=== PATIENT | female | born 1995 | race Hispanic/Latino ===

== ENCOUNTER 2024-11-15 20:41 | Emergency (ER) | payer OTHER ==
[~2024-11-15] VITALS: Ht 152.4 cm; Wt 72.6 kg
--- NOTE | 2024-11-15 20:42 | NUR ---
UA CUP PROVIDED
--- NOTE | 2024-11-15 21:09 | EKG ---
[facility] Test Date: 2024-11-15 Test Time: 21:06:47 Pat Name: ANGUS RUVALCABA Department: 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
[2024-11-15 21:31] LABS: BASOPHILS # (AUTO) 0.03 K/uL (0.00-0.20); BASOPHILS % (AUTO) 0.4 % (0.0-5.0); EOSINOPHILS # (AUTO) 0.09 K/uL (0.00-0.70); EOSINOPHILS % (AUTO) 1.1 % (0.0-8.0); IMMATURE GRANULOCYTE ABSOLUTE 0.02 K/uL (0-1); LYMPHOCYTES # (AUTO) 2.2 K/uL (1.0-4.8); LYMPHOCYTES % (AUTO) 28.1 % (21.0-51.0); MEAN CORPUSCULAR HEMOGLOBIN 26.9 pg (27.0-33.0); MEAN CORPUSCULAR HGB CONC 31.8 g/dL (32.0-36.0); MEAN CORPUSCULAR VOLUME 84.7 fL (79-99); MONOCYTES # (AUTO) 0.8 K/uL (0.1-1.0); MONOCYTES % (AUTO) 9.6 % (3.0-13.0); NEUTROPHILS # (AUTO) 4.7 K/uL (1.8-7.7); NEUTROPHILS % (AUTO) 60.5 % (40.0-77.0); PLATELET COUNT (AUTO) 228 K/uL (130-400); RED BLOOD CELL COUNT(AUTO) 5.31 MIL/uL (4.00-5.50); RED CELL DISTRIBUTION WIDTH 12.6 % (11.0-15.5); WHITE BLOOD COUNT (AUTO) 7.8 K/uL (4.8-10.8)
[2024-11-15 21:35] LABS: APPEARANCE,URINE CLEAR (CLEAR); BILIRUBIN,URINE NEGATIVE (NEGATIVE); COLOR,URINE LIGHT-YELLOW (YELLOW); GLUCOSE, URINE (UA) NEGATIVE (NEGATIVE); KETONES,URINE NEGATIVE (NEGATIVE); LEUKOCYTE ESTERASE ,URINE NEGATIVE Leu/uL (NEGATIVE); NITRATE,URINE NEGATIVE (NEGATIVE); OCCULT BLOOD,URINE NEGATIVE (NEGATIVE); PH,URINE 7.5 (5.0-8.0); PROTEIN,URINE NEGATIVE (NEGATIVE); UROBILINOGEN,URINE 0.2 mg/dL (0.2-1.0)
[2024-11-15 21:37] LABS: HCG,QUALITATIVE URINE NEGATIVE (NEGATIVE)
[2024-11-15 21:38] LABS: ADD UA MICROSCOPIC YES
[2024-11-15 21:41] LABS: CREATININE 0.9 mg/dL (0.5-1.0); POTASSIUM 3.8 mmol/L (3.5-5.1)
[2024-11-15 21:45] LABS: ALBUMIN 3.9 g/dL (3.5-5.0); BILIRUBIN,DIRECT 0.1 mg/dL (0.0-0.3); BILIRUBIN,TOTAL 0.3 mg/dL (0.2-1.0); TOTAL PROTEIN, SERUM 7.7 g/dL (6.0-8.3)
[2024-11-15] MEDS: LIDOCAINE HCL 2% VISCOUS 15 ML UDCUP PO ONE (21:45)
[2024-11-15] MEDS: DICYCLOMINE HCL 10 MG/5 ML ML PO ONE (21:45)
[2024-11-15] MEDS: MAG/ALUM/SIMETH 30 ML UDCUP PO ONE (21:45)
[2024-11-15 21:48] LABS: BACTERIA,URINE FEW /HPF (None Seen); RBC,URINE 0-1 /HPF (0-1); SQUAMOUS EPITHELIAL CELL,UR RARE /HPF (0-2); UNCLASSIFIED CRYSTAL 2 /HPF (None Seen); WBC,URINE 0-1 /HPF (0-1)
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
--- NOTE | 2024-11-15 22:52 | HMCIMG ---
CHEST 1VW HISTORY: Chest pain COMPARISON: 04/24/2024 FINDINGS: A frontal projection of the chest was obtained. No acute pulmonary infiltrates is seen. The heart is normal in size. Prominent interstitial markings are seen. No evidence of aortic calcification is seen. IMPRESSION: 1. No acute pulmonary infiltrate is seen.
[2024-11-15] MEDS ORDERED: FAMO-136 PO (23:00)
[2024-11-15 23:16] VITALS: BP 137/85; PULSE 83; RESP 18; TEMP 98.5; O2SAT 99
== END 2024-11-15 23:17 | disposition home or self-care (01) ==
LOC: EDH 20:41
DX: K29.70 Gastritis, unspecified, without bleeding (principal); R00.2 Palpitations; M54.6 Pain in thoracic spine; Z90.89 Acquired absence of other organs
CPT/HCPCS: 36415; 71045; 80048; 80076; 81001; 81025; 82550; 83690; 84484; 85025; 93005; 99285

== ENCOUNTER → 2024-12-06 | Outpatient (CLI) | payer OTHER ==
[~2024-12-06] MED LIST: FAMO-136 PO
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
== END | disposition home or self-care (01) ==
LOC: RAH 08:46
PROVIDERS: ATTEND Internal Medicine Gastroenterology
DX: R12 Heartburn (principal); R14.2 Eructation; R00.2 Palpitations; K31.89 Other diseases of stomach and duodenum
CPT/HCPCS: 74240